=== PATIENT | male | born 2000 | race Caucasian/White ===

== ENCOUNTER → 2022-10-02 | Outpatient (CLI) | payer BC ==
--- NOTE | 2022-10-02 17:38 | Diagnostic Imaging Report ---
CLINICAL HISTORY: Bilateral knee pain. Basketball injuries. COMPARISON: None. TECHNIQUE: 6 views of the bilateral knees. FINDINGS: There is no acute fracture or dislocation of the bilateral knees.Alignment is anatomic. The imaged joint spaces are preserved. No joint effusion is seen in the bilateral knees. No focal osseous lesion. IMPRESSION: No acute fracture or dislocation in the knees. No joint effusion. Dictated by: Dictated on workstation # [id number]
== END ==
LOC: ORTHO 12:55
PROVIDERS: ATTEND Orthopaedic Surgery
DX: M25.561 Pain in right knee (principal); M25.562 Pain in left knee
CPT/HCPCS: 73562; G0463; 99213

== ENCOUNTER → 2022-11-17 | Outpatient (CLI) | payer BC ==
--- NOTE | 2022-11-17 12:55 | Diagnostic Imaging Report ---
MRI RT LOWER EXT JOINT W/O TECHNIQUE: Multiplanar, multisequence MR imaging of the right knee was performed without contrast. COMPARISON: Knee series of 10/02/2022 INDICATION: Anterior knee pain, patellar tendinitis FINDINGS: MENISCI Medial meniscus: Normal. Lateral meniscus: Normal. LIGAMENTS ACL: Intact. PCL: Intact. MCL: Intact. LCL: The lateral collateral ligamentous complex is intact. EXTENSOR MECHANISM Quadriceps is intact. Partial-thickness tear of the deep aspect at the origin of the patellar tendon involves 50% of the thickness. Surrounding T2 hyperintense edema is present within the soft tissues and lower pole of the patella. CARTILAGE Medial compartment: Medial compartment articular cartilage is well preserved without focal high-grade chondromalacia. Lateral compartment: The lateral compartment articular cartilage is preserved without high-grade chondromalacia. Patellofemoral compartment: The patellofemoral articular cartilage is well preserved without high-grade chondromalacia. BONE No fracture, stress fracture or osteonecrosis. SOFT TISSUE No knee effusion or Rodriguez's cyst. IMPRESSION: 1. Partial-thickness tear at the origin of the patellar tendon involves up to 50% of the thickness of the tendon. 2. No meniscal tear. 3. Articular cartilage is normal. Dictated by: Dictated on workstation # [id number]
--- NOTE | 2022-11-17 13:52 | Diagnostic Imaging Report ---
MRI LT LOWER EXT JOINT W/O TECHNIQUE: Multiplanar, multisequence MR imaging of the left knee was performed without contrast. COMPARISON: Knee series of 10/02/2022. INDICATION: Anterior knee pain, patellar tendinitis. FINDINGS: MENISCI Medial meniscus: Normal. Lateral meniscus: Normal. LIGAMENTS ACL: ACL is intact with an elongated ganglion cyst within its proximal substance. PCL: Intact. MCL: Intact. LCL: The lateral collateral ligamentous complex is intact. EXTENSOR MECHANISM Quadriceps is intact. There is focal edema in the deep aspect of the proximal patellar tendon without associated tear. Edema is present in the superolateral aspect of Hoffa's fat pad between the patellar tendon and lateral femoral condyle. CARTILAGE Medial compartment: Medial compartment articular cartilage is well preserved without focal high-grade chondromalacia. Lateral compartment: The lateral compartment articular cartilage is preserved without high-grade chondromalacia. Patellofemoral compartment: The patellofemoral articular cartilage is well preserved without high-grade chondromalacia. BONE No fracture, stress fracture or osteonecrosis. SOFT TISSUE No knee effusion or Rodriguez's cyst. IMPRESSION: 1. Mild patellar tendinitis without associated tear. 2. Impingement in the fat pad between the patellar tendon and lateral femoral condyle can be seen with friction syndrome. No trochlear dysplasia or lateralization of the tibial tuberosity. 3. Articular cartilage is normal. Dictated by: Dictated on workstation # [id number]
== END ==
LOC: RAD 10:07
PROVIDERS: ATTEND Orthopaedic Surgery
DX: S86.812A Strain of other muscle(s) and tendon(s) at lower leg level, left leg, initial encounter (principal); X58.XXXA Exposure to other specified factors, initial encounter
CPT/HCPCS: 73721

== ENCOUNTER → 2022-11-25 | Outpatient (CLI) | payer BC | LOC: ORTHO 10:52 | PROVIDERS: ATTEND Orthopaedic Surgery | DX: S76.111D Strain of right quadriceps muscle, fascia and tendon, subsequent encounter (principal); X58.XXXD Exposure to other specified factors, subsequent encounter ==

== ENCOUNTER → 2023-03-05 | Outpatient (CLI) | payer BC ==
[~2023-03-05] MED LIST: OXC5T PO
== END ==
LOC: ORTHO 08:39
PROVIDERS: ATTEND Orthopaedic Surgery
DX: Z47.89 Encounter for other orthopedic aftercare (principal)

== ENCOUNTER 2023-03-16 05:32 | Outpatient (CLI) | payer BC ==
[~2023-03-16] VITALS: Ht 198.1 cm; Wt 95.6 kg
== END 2023-03-16 12:48 | disposition home or self-care (01) ==
LOC: PREOP 05:32
PROVIDERS: ATTEND Orthopaedic Surgery
DX: Z01.818 Encounter for other preprocedural examination (principal)

== ENCOUNTER 2023-03-23 07:58 | Day surgery (SDC) | payer BC ==
[~2023-03-23] VITALS: Ht 198.1 cm; Wt 95.6 kg
[2023-03-23] VITALS (10 sets, daily range): BP systolic 117–131; BP diastolic 56–74
[2023-03-23] MEDS ORDERED: LACTATED RINGERS 1,000 ML IV PRN (08:15)
[2023-03-23] MEDS ORDERED: ceFAZolin INJECTION 2,000 MG in NS (IVPB) 50 ML 50 ML IV ONE (08:15)
[2023-03-23] MEDS ORDERED: ROPIVACAINE 5MG/ML 30ML VIAL ONE (08:34)
[2023-03-23] MEDS ORDERED: fentaNYL INJECTION 100 MCG/2 ML VIAL ONE (08:34)
[2023-03-23] MEDS ORDERED: MIDAZOLAM INJ 2 MG/2 ML VIAL ONE (08:34)
[2023-03-23] MEDS ORDERED: LIDOCAINE PF 2% 5 ML VIAL ONE (08:36)
[2023-03-23] MEDS ORDERED: proPOfol 200 MG/20 ML (DIPRIVAN) VIAL IV ONE (09:31)
[2023-03-23] MEDS ORDERED: ONDANSETRON 4 MG/2 ML (SDV) Z0FRAN ONE (11:19)
[2023-03-23] MEDS ORDERED: dexAMETHasone INJ 10 MG/ML 1 ML VIAL ONE (11:19)
[2023-03-23] MEDS ORDERED: SEVOFLURANE (ULTANE) 15 ML INHAL SOLN ONE (11:19)
[2023-03-23] MEDS ORDERED: KETOROLAC INJ 30 MG/ML VIAL ONE (11:20)
[2023-03-23] MEDS ORDERED: OXC5T PO (11:38)
[2023-03-23] MEDS ORDERED: ONDANSETRON 4 MG/2 ML (SDV) Z0FRAN IVP PRN (11:45)
[2023-03-23] MEDS ORDERED: HYDROmorphone INJECTION 2 MG/ML VIAL IV ONE (11:45)
--- NOTE | 2023-03-23 11:50 | Progress Note-Pre Operative ---
Pre-Operative Progress Note Date of Available H&P: Mar 03, 2023 Date H&P Reviewed: Mar 23, 2023 Time H&P Reviewed: 10:45 History & Physical: H&P Reviewed, Patient Examed, No changes noted Pre-Operative Diagnosis: Right Patellar Tendon Tear HARRISON DIAZ MD Mar 23, 2023 11:50
--- NOTE | 2023-03-23 11:56 | Operative Report - Ortho ---
Operative Report Surgeon (s)/Sterilizer Machine Operator (s) Surgeon HARRISON DIAZ MD Sterilizer Machine Operator n/a Pre-Operative Diagnosis Right Patellar Tendon Tear Post-Operative Diagnosis same Operative Report Date of Procedure: Mar 23, 2023 Name of Procedure Performed: Primary Repair of Right Patellar Tendon Description & Findings After obtaining informed consent and marking the patient in the preoperative holding area, patient was administered IV antibiotics. Patient was taken to the operating room and general anesthesia was induced. Surgical timeout was taken. The right lower extremity was prepped and draped in the usual sterile fashion. Incision was made centered over the patellar tendon from the distal pole of the patella to the tibial tubercle. Patellar tendon was exposed. The central portion of the tendon was detached at the distal pole to expose the torn portion of the tendon. The torn tissue was debrided. The distal pole of the patella was debrided to bleeding bone. A tape suture was passed through the patellar tendon in Gackle fashion. The distal pole of the patella was prepared for an anchor. The tails of the Gackle suture were placed through the first portion of the anchor and this was positioned using a mallet. Tension was applied to the tails creating approximation with the distal pole of the patella and the second portion of the anchor was deployed to keep the tension and approximation. #2 Fiberwire was used to complete the superficial portion of the repair. The paratenon was repaired with 2-0 vicryl as well as the subcutaneous layer. The skin was repaired with subcuticular 3-0 v-loc. Wound was dressed with steri-strips, xeroform, 4x4s, cast padding, and webril. Patient tolerated the procedure well and was stable to the recovery room. Anesthesia Type General Estimated Blood Loss minimal Specimen(s) collected/removed None HARRISON DIAZ MD Mar 23, 2023 11:56
--- NOTE | 2023-03-23 11:59 | Anesthesia-General Post-Op ---
MAC Patient Condition Mental Status/LOC: Same as Preop Cardiovascular: Satisfactory Nausea/Vomiting: Absent Respiratory: Satisfactory Pain: Controlled Complications: Absent Post Op Complications Complications None Follow Up Care/Instructions Patient Instructions None needed. Anesthesiology Discharge Order Discharge Order Patient is doing well, no complaints, stable vital signs, no apparent adverse anesthesia problems. No complications reported per nursing. HARRISON MAYES CRNA Mar 23, 2023 11:59
--- NOTE | 2023-03-23 14:01 | Physical Therapy Ortho Eval ---
PT Orthopedic Evaluation Type of Surgery Right Patellar Tendon Tear Prior Level of Function Current Living Status: Alone Locomotion (Upon Admit): Independent Subjective Entry Into Home: Stairs With Railing Steps Into Home: 3 Objective Objective right knee immobilizer in place Motor Control Motor Control: Motor Control WNL ROM ROM: WFL, except focal deficit Strength Strength: WFL Transfer SCALE: Activities may be completed with or without assistive devices. 1-Bniguzysro-flbnyjt completes the activity by him/herself with no assistance from a helper. 5-Set-up or Clean-up Assistance-helper sets up or cleans up; patient completes activity. Gilson assists only prior to or following the activity. 4-Supervision or Touching Assistance-helper provides verbal cues and/or touching/steadying and/or contact guard assistance as patient completes activity. Assistance may be provided throughout the activity or intermittently. 3-Partial/Moderate Assistance-helper does LESS THAN HALF the effort. Gilson lifts, holds or supports trunk or limbs, but provides less than half the effort. 2-Substantial/Maximal Assistance-helper does MORE THAN HALF the effort. Gilson lifts or holds trunk or limbs and provides more than half the effort. 3-Gavvkyukm-ieeyyu does ALL the effort. Patient does none of the effort to complete the activity. Or, the assistance of 2 or more helpers is required for the patient to complete the activity. If activity was not attempted, code reason: 7-Patient Refused. 9-Not Applicable-not attempted and the patient did not perform the activity before the current illness, exacerbation or injury. 10-Not Attempted due to Environmental Limitations-(lack of equipment, weather restraints, etc.). 88-Not Attempted due to Medical Conditions or Safety Concerns. Gait Gait Assistive Device: Crutches Right Lower Extremity: Right Weight Bearing Status RLE: Weight Bearing/Tolerated Left Lower Extremity: Left Weight Bearing Status LLE: Full Weight Bearing Gait (QC): 6 Distance: 100' Summary/Comments functional use of crutches Treatment Rendered Treatment: Gait Train, Step Train (verbal instruction) Assessment/Goals Goal Time Frame: 1 Visit Safe Ambulation: Yes Plan Treatment Plan: Discharge Treatment Duration: evaluation Time Time In: 1300 Time Out: 1318 Total Billed Treatment Time: 18 Billed Treatment Time 1 visit [facility] 18 min ANN HUETRAS PT Mar 23, 2023 14:01
== END 2023-03-23 13:45 | disposition home or self-care (01) ==
LOC: SDC 07:58
PROVIDERS: ATTEND Orthopaedic Surgery
DX: S86.811A Strain of other muscle(s) and tendon(s) at lower leg level, right leg, initial encounter (principal); S76.111A Strain of right quadriceps muscle, fascia and tendon, initial encounter; Z28.310 Unvaccinated for COVID-19
CPT/HCPCS: 27380; 87081; 97161; C1713

== ENCOUNTER → 2023-04-07 | Outpatient (CLI) | payer BC | LOC: ORTHO 10:17 | PROVIDERS: ATTEND Orthopaedic Surgery | DX: Z47.89 Encounter for other orthopedic aftercare (principal) ==

== ENCOUNTER → 2023-04-21 | Outpatient (CLI) | payer BC | LOC: ORTHO 10:05 | PROVIDERS: ATTEND Orthopaedic Surgery | DX: Z47.89 Encounter for other orthopedic aftercare (principal) ==

== ENCOUNTER → 2023-05-05 | Outpatient (CLI) | payer BC | LOC: ORTHO 11:41 | PROVIDERS: ATTEND Orthopaedic Surgery | DX: Z47.89 Encounter for other orthopedic aftercare (principal) ==

== ENCOUNTER → 2023-05-19 | Outpatient (CLI) | payer BC | LOC: ORTHO 11:37 | PROVIDERS: ATTEND Orthopaedic Surgery | DX: Z47.89 Encounter for other orthopedic aftercare (principal) ==

== ENCOUNTER → 2023-06-23 | Outpatient (CLI) | payer BC | LOC: ORTHO 11:30 | PROVIDERS: ATTEND Orthopaedic Surgery | DX: Z47.89 Encounter for other orthopedic aftercare (principal) ==